=== PATIENT | female | born 1950 | race Caucasian/White ===

== ENCOUNTER 2019-09-09 10:49 | Inpatient (IN) ==
[2019-09-09 11:50] LABS: ABS Eosinophils 0.2 10^3/ul (0-0.6); ABS Lymphocytes 2.2 10^3/ul (1.0-4.8); ABS Monocytes 0.5 10^3/ul (0-0.8); Eosinophil % 3.4 %; Hematocrit 36 % (35-47); Hemoglobin 11.3 g/dL (12.0-16.0); Lymphocyte % 30.9 %; Mean Corpuscular HGB Conc 32 g/dL (31-36); Mean Corpuscular Hemoglobin 25 pg (27-31); Mean Corpuscular Volume 78 fL (80-97); Mean Platelet Volume 7.7 fL (7.4-10.4); Platelet Count 297 10^3/uL (150-450); Red Blood Count 4.58 10^6 /uL (3.70-4.87); Red Cell Distribution Width 22 % (10-15); White Blood Count 7.1 10^3/uL (3.5-10.8)
[2019-09-09 11:55] LABS: INR 2.09 (0.82-1.09)
[2019-09-09 12:06] LABS: Albumin/Globulin Ratio 1.3 (1-3); Calcium 9.4 mg/dL (8.6-10.3); EGFR African American 90.2 (>60); EGFR Non-African American 74.5 (>60); Globulin 3.1 g/dL (2-4); Potassium 3.9 mmol/L (3.5-5.0); Total Bilirubin 0.5 mg/dL (0.2-1.0); Total Protein 7.1 g/dL (6.4-8.9)
[2019-09-09] MEDS ORDERED: Nitroglycerin 0.1 mg/hr PATCH (2.5 mg) TRANSDERM ONE (13:13)
[2019-09-09] MEDS ORDERED: Furosemide 20 mg/2 ml IV VIAL IV SLOW PU ONE (13:13)
[2019-09-09] MEDS ORDERED: Metoprolol Tartrate 5 mg VIAL 5 ml VIAL (1 mg/ml) IV ONE (14:02)
[2019-09-09] MEDS ORDERED: hydrALAZINE 20 mg/ml 1 ML Vial IV IV SLOW PU ONE ×2 (14:08→14:51)
[2019-09-09] MEDS ORDERED: hydrALAZINE 20 mg/ml 1 ML Vial IV IV SLOW PU PRN (15:29)
[2019-09-09] MEDS ORDERED: FERRIC GLUCONATE IVPB ONE ×2 (15:30)
[2019-09-09] MEDS ORDERED: NS 0.9% IVPB ONE ×2 (15:30)
[2019-09-09 15:38] LABS: Magnesium 1.9 mg/dL (1.9-2.7)
[2019-09-09 16:09] LABS: Ferritin 22.7 ng/mL (11-307)
[2019-09-09] MEDS ORDERED: Enalaprilat IV 1.25 mg/ml 2 ml VIAL (2.5 MG) IV ONE (16:20)
[2019-09-09] MEDS ORDERED: LoraTADine 10 mg TAB (NF) PO ONE (17:00)
[2019-09-09] MEDS: Enalaprilat IV 1.25 mg/ml 1 ml VIAL (1.25 MG) IV PRN (19:21)
[2019-09-09] MEDS: Ondansetron 4 mg VIAL 2 MG/ML 2 ml VIAL IV PRN (19:40)
[2019-09-10 04:34] LABS: ABS Basophils 0.1 10^3/ul (0-0.2); ABS Eosinophils 0.2 10^3/ul (0-0.6); ABS Lymphocytes 2.3 10^3/ul (1.0-4.8); ABS Monocytes 0.5 10^3/ul (0-0.8); Eosinophil % 3.4 %; Hematocrit 35 % (35-47); Hemoglobin 11.2 g/dL (12.0-16.0); Lymphocyte % 35.8 %; Mean Corpuscular HGB Conc 32 g/dL (31-36); Mean Corpuscular Hemoglobin 25 pg (27-31); Mean Corpuscular Volume 78 fL (80-97); Mean Platelet Volume 7.6 fL (7.4-10.4); Nucleated Red Blood Cells % 0.2; Platelet Count 269 10^3/uL (150-450); Red Blood Count 4.46 10^6 /uL (3.70-4.87); Red Cell Distribution Width 22 % (10-15); White Blood Count 6.3 10^3/uL (3.5-10.8)
[2019-09-10 04:49] LABS: BUN/Creatinine Ratio 22.4 (8-20); Calcium 9.2 mg/dL (8.6-10.3); EGFR African American 91.6 (>60); EGFR Non-African American 75.7 (>60); Potassium 3.5 mmol/L (3.5-5.0)
[2019-09-10] MEDS: Rivaroxaban 20 mg TAB (*) PO SCH (08:31)
[2019-09-10] MEDS: Ondansetron 4 mg VIAL 2 MG/ML 2 ml VIAL IV PRN (12:59)
[2019-09-10] MEDS ORDERED: Potassium Chloride LIQUID 20 MEQ/15 ML LIQUID PO SCH (13:00)
[2019-09-10] MEDS: Potassium Chlor 10 meq TAB PO SCH ×2 (16:10→20:31)
[2019-09-11 07:31] LABS: BUN/Creatinine Ratio 25.8 (8-20); Calcium 9.3 mg/dL (8.6-10.3); EGFR African American 72.5 (>60)
[2019-09-11] MEDS: Ondansetron 4 mg VIAL 2 MG/ML 2 ml VIAL IV PRN ×2 (08:27→18:14)
[2019-09-11] MEDS: Rivaroxaban 20 mg TAB (*) PO SCH (08:29)
[2019-09-12] MEDS: Enalaprilat IV 1.25 mg/ml 1 ml VIAL (1.25 MG) IV PRN (00:50)
[2019-09-12] MEDS ORDERED: Enalaprilat IV 1.25 mg/ml 1 ml VIAL (1.25 MG) IV PRN (03:20)
[2019-09-12] MEDS: Rivaroxaban 20 mg TAB (*) PO SCH (07:16)
[2019-09-12] MEDS: Ondansetron 4 mg VIAL 2 MG/ML 2 ml VIAL IV PRN (10:41)
[2019-09-12 11:40] LABS: ABS Eosinophils 0.2 10^3/ul (0-0.6); ABS Lymphocytes 2.1 10^3/ul (1.0-4.8); ABS Monocytes 0.5 10^3/ul (0-0.8); Eosinophil % 3.3 %; Hematocrit 37 % (35-47); Hemoglobin 11.8 g/dL (12.0-16.0); Lymphocyte % 28.4 %; Mean Corpuscular HGB Conc 32 g/dL (31-36); Mean Corpuscular Hemoglobin 25 pg (27-31); Mean Corpuscular Volume 79 fL (80-97); Mean Platelet Volume 7.5 fL (7.4-10.4); Nucleated Red Blood Cells % 0.1; Platelet Count 288 10^3/uL (150-450); Red Blood Count 4.69 10^6 /uL (3.70-4.87); Red Cell Distribution Width 22 % (10-15); White Blood Count 7.5 10^3/uL (3.5-10.8)
[2019-09-12 11:55] LABS: Albumin 3.7 g/dL (3.2-5.2); Albumin/Globulin Ratio 1.2 (1-3); BUN/Creatinine Ratio 24.2 (8-20); C Reactive Protein 4.36 mg/L (<8.01); Calcium 9.6 mg/dL (8.6-10.3); EGFR African American 67.5 (>60); EGFR Non-African American 55.8 (>60); Globulin 3.2 g/dL (2-4); Potassium 4.6 mmol/L (3.5-5.0); Total Bilirubin 0.5 mg/dL (0.2-1.0); Total Protein 6.9 g/dL (6.4-8.9)
[2019-09-12] MEDS ORDERED: Magnesium Hydroxide LIQ 30 ML UDC PO PRN (12:07)
[2019-09-12] MEDS ORDERED: Senna TAB 8.6 mg TAB PO PRN (12:07)
[2019-09-12] MEDS ORDERED: Polyethylene Glycol 3350 17 GM PACKET PO PRN (12:07)
[2019-09-12] MEDS ORDERED: Magnesium Hydroxide LIQ 30 ML UDC PO SCH (21:00)
[2019-09-13 07:40] VITALS: BP 147/75
[2019-09-13] MEDS: Rivaroxaban 20 mg TAB (*) PO SCH (08:37)
== END 2019-09-13 11:00 | disposition home or self-care (01) | DRG 291 ==
LOC: ED 10:49 → ICU 17:31 → MEDTELE 09-10 11:15
PROVIDERS: ADMIT Internal Medicine; ATTEND Internal Medicine